=== PATIENT | female | born 1995 | race African-American/Black ===

== ENCOUNTER 2017-05-23 19:14 | Emergency (ER) | payer BC ==
[2017-05-23] MEDS ORDERED: HYDROcodone/ACETAMIN 5-325 MG* 1 TAB PO ONE (20:23)
--- NOTE | 2017-05-23 20:49 | RAD ---
INDICATION: Back pain. Injury. COMPARISON: None TECHNIQUE: Routine PA, lateral, and oblique imaging was performed . FINDINGS: Bones: There are no acute bony findings. There are postsurgical changes with thoracolumbar carey placement. Alignment: There is moderate levoscoliosis. Disc spaces: The disc spaces are well-maintained Soft tissues: There are no soft tissue abnormalities. IMPRESSION: MCCARTY CAREY PLACEMENT. LEVOSCOLIOSIS. NO ACUTE FINDINGS
[2017-05-23 21:54] VITALS: BP 130/68
--- NOTE | 2017-05-23 22:41 | ED ---
Kenzie Lopes Alfonso, scribed for Mario Alberto Hall MD on 05/23/17 at 205 . Adult Trauma - HPI Summary HPI Summary: This patient is a 21 year old F [place] [facility] [place] s/p falling off a horse and landing on her buttock at approximately 1815 today. The patient rates the pain 6/10 in severity. Symptoms aggravated by sitting, and LLE movement. Symptoms alleviated by nothing. Patient reports ability to walk, bilateral hip soreness (resolved), and LLE pain. Patient denies head trauma, abdominal pain, and neck pain. - History of Current Complaint Chief Complaint: EDBackInjuryPain Stated Complaint: FALL/LOWER BACK PAIN Time Seen by Provider: 05/23/17 19:50 Hx Obtained From: Patient Mechanism of Injury: Fall - off horse Ambulatory at the Scene: Yes Impact: Rear Force: Direct Onset/Duration: Started Hours Ago, Traumatic, Still Present Onset of Pain: Immediate Current Severity: Moderate Pain Intensity: 6 Pain Scale Used: 0-10 Numeric Location: Back, Extremities - LLE Aggravating Factor(s): Other - Sitting and LLE movement Alleviating Factor(s): Nothing Associated Signs & Symptoms: Positive: Other: - ability to walk, bilateral hip soreness (resolved), and LLE pain. Patient denies head trauma, abdominal pain, and neck pain. - Allergy/Home Medications Allergies/Adverse Reactions: Allergies Allergy/AdvReac Type Severity Reaction Status Date / Time No Known Allergies Allergy Verified 05/23/17 19:25 PMH/Surg Hx/FS Hx/Imm Hx Respiratory History: Reports: Hx Asthma Opthamlomology History: Denies: Hx Legally Blind EENT History: Denies: Hx Deafness Infectious Disease History: No Infectious Disease History: Denies: Traveled Outside the [place] in Last 30 Days - Family History Known Family History: Positive: Hypertension, Diabetes, Other - Glaucoma - Social History Alcohol Use: Rare Substance Use Type: Reports: None Smoking Status (MU): Never Smoked Tobacco Review of Systems Negative: Fever Negative: Abdominal Pain Positive: Other - fall off horse, ability to walk, bilateral hip soreness ( resolved), and LLE pain. Negative neck pain. Neurological: Other - negative head trauma All Other Systems Reviewed And Are Negative: Yes Physical Exam - Summary Physical Exam Summary: Appearance: Well-appearing, no pain distress Skin: Warm, dry, color reflects adequate perfusion Head/face: Nml head/face Eyes: Nml eyes ENT: Nml ENT Neck: Supple, non-tender Respiratory: CTA, breath sound present Cardiovascular: RRR Abdomen: Abd soft, non-tender Bowel: Bowel sounds present Musculoskeletal: Well healed midline lumbar scar, tender midline along scar, and positive left straight leg raise. Neurological: Nml neuro, sensory/motor intact, A&Ox3, CN Intact II-III Psychiatric: Nml psychiatric, affect/mood appropriate Triage Information Reviewed: Yes Vital Signs On Initial Exam: Initial Vitals Temp Pulse Resp BP Pulse Ox 98.7 F 73 16 138/71 100 05/23/17 19:23 05/23/17 19:23 05/23/17 19:23 05/23/17 19:23 05/23/17 19:23 Vital Signs Reviewed: Yes - [place] Coma Scale Coma Scale Total: 15 Diagnostics - Vital Signs Vital Signs Temp Pulse Resp BP Pulse Ox 05/23/17 19:23 98.7 F 73 16 138/71 100 - Laboratory Lab Statement: Any lab studies that have been ordered have been reviewed, and results considered in the medical decision making process. - Radiology Lumbar Spine X-ray Radiology Interpretation Completed By: Radiologist - MCCARTY CAREY PLACEMENT. LEVOSCOLIOSIS. NO ACUTE FINDINGS. ED physician has reviewed this radiology report and agrees. Adult Trauma Course/Dx - Course Course Of Treatment: Ms. Mauricio Demarco fell off a horse and hurt her low back. She previously had rods for scoliosis. Plain films were negative for bony iinjury and she improved with meds here. - Diagnoses Provider Diagnoses: Injury of low back Discharge - Discharge Plan Condition: Stable Disposition: HOME Prescriptions: HYDROcodone/ACETAMIN 5-325 MG* [[place] 5-325 TAB*] 1 tab PO Q6H PRN #20 tab MDD 4 PRN Reason: Pain Patient Education Materials: Low Back Strain (ED) [place]: [facility] [place] [facility] [place] [place]] - 3 Days Additional Instructions: RETURN TO THE EMERGENCY DEPARTMENT FOR CHANGING OR WORSENING SYMPTOMS. TAKE IBUPROFEN DIRECTED AND NEEDED. The documentation as recorded by the Kenzie blandon Alfonso accurately reflects the service I personally performed and the decisions made by , Mario Alberto Hall MD.
== END 2017-05-23 21:52 | disposition home or self-care (01) ==
LOC: ED 19:14
DX: S39.92XA Unspecified injury of lower back, initial encounter (principal); V80.010A Animal-rider injured by fall from or being thrown from horse in noncollision accident, initial encounter; Y92.9 Unspecified place or not applicable
CPT/HCPCS: 72110; 99282